=== PATIENT | male | born 1990 ===

== ENCOUNTER 2017-12-05 10:40 | Emergency (ER) | payer BC, OTHER ==
[2017-12-05 10:47] VITALS: BP 140/68
--- NOTE | 2017-12-05 11:24 | UC ---
Ear Complaint HPI - HPI Summary HPI Summary: Patient has sharp pain in both ears, congestion and headache - History of Current Complaint Chief Complaint: UCEar Stated Complaint: SINUS AND EAR COMPLAINT Time Seen by Provider: 12/05/17 11:02 Hx Obtained From: Patient Onset/Duration: Sudden Onset, Lasting Days Severity Initially: Moderate Severity Currently: Moderate Pain Intensity: 6 Associated Signs/Symptoms: Positive: Swelling @, URI Symptoms - Allergies/Home Medications Allergies/Adverse Reactions: Allergies Allergy/AdvReac Type Severity Reaction Status Date / Time No Known Allergies Allergy Verified 12/05/17 10:47 Home Medications: Home Medications Dm/PE/Acetaminophen/Doxylamine [Vicks Dayquil/Nyquil Cold] 1 mis PO 12/05/17 [ History] PMH/Surg Hx/FS Hx/Imm Hx Previously Healthy: Yes - Surgical History Surgical History: None - Family History Known Family History: Positive: Hypertension - Social History Alcohol Use: Rare Substance Use Type: None Smoking Status (MU): Never Smoked Tobacco Review of Systems Constitutional: Fatigue Skin: Negative Eyes: Negative ENT: Sore Throat, Ear Ache, Nasal Discharge, Sinus Congestion Respiratory: Cough Cardiovascular: Negative Gastrointestinal: Negative Genitourinary: Negative Motor: Negative Neurovascular: Negative Musculoskeletal: Negative Neurological: Headache Psychological: Negative Is Patient Immunocompromised?: No All Other Systems Reviewed And Are Negative: Yes Physical Exam Triage Information Reviewed: Yes Appearance: Well-Nourished, Ill-Appearing, Pain Distress Vital Signs: Initial Vital Signs Temp 98.0 F 12/05/17 10:43 Pulse 68 12/05/17 10:43 Resp 18 12/05/17 10:43 BP 140/68 12/05/17 10:43 Pulse Ox 99 12/05/17 10:43 Vital Signs Reviewed: Yes Eye Exam: Normal ENT: Positive: Pharyngeal erythema, Nasal congestion, TM bulging, TM dull - bilaterally, TM red Dental Exam: Normal Neck: Positive: Supple, Nontender, Enlarged Nodes @ - left cervical Respiratory Exam: Normal Respiratory: Positive: Chest non-tender, Normal breath sounds, Wheezing Cardiovascular Exam: Normal Cardiovascular: Positive: RRR, No Murmur, Pulses Normal Abdominal Exam: Normal Abdomen Description: Positive: Nontender, No Organomegaly, Soft Bowel Sounds: Positive: Present Musculoskeletal Exam: Normal Neurological Exam: Normal Psychological Exam: Normal Skin Exam: Normal Ear Complaint Course/Dx - Course Course Of Treatment: hx obtained, exam performed, meds reviewed, treated for bilateral ear infection - Differential Dx/Diagnosis Differential Diagnosis/HQI/PQRI: Otitis Externa, Otitis Media, Perforated TM, URI Provider Diagnoses: bilateral ear infection. wheezing Discharge - Sign-Out/Discharge Documenting (check all that apply): Patient Departure - Discharge Plan Condition: Stable Disposition: HOME Prescriptions: Albuterol HFA INHALER* [Ventolin HFA Inhaler*] 2 puff INH Q4H PRN #1 mdi PRN Reason: Sob/Wheezing Amoxicillin PO (*) [Amoxicillin 875 MG (*)] 875 mg PO BID #20 tab Patient Education Materials: Ear Infection (ED) Referrals: No Primary Care Phys,NOPCP [Primary Care Provider] - Additional Instructions: 1. take the medication as prescribed. 2. Follow up if not improving with treatment - Billing Disposition and Condition Condition: STABLE Disposition: Home
== END 2017-12-05 11:17 | disposition home or self-care (01) ==
LOC: UCEAST 10:40
DX: H66.93 Otitis media, unspecified, bilateral (principal); R06.2 Wheezing; Z82.49 Family history of ischemic heart disease and other diseases of the circulatory system
CPT/HCPCS: 99202; G0463

== ENCOUNTER 2017-12-07 12:24 | Emergency (ER) | payer OTHER ==
[2017-12-07 12:32] VITALS: BP 142/91
--- NOTE | 2017-12-07 13:01 | UC ---
Eye Complaint HPI - HPI Summary HPI Summary: 27 yo male presents with b/l eye redness, drainage, and crusting since last night. He tells me that he was seen here a few days ago and dx'd with sinusitis and placed on antibiotics. He also mentions that it seems like every time he gets sinus infections, his eyes will get "infected" - red, itchy, yellow drainage, and crusting. Denies vision changes, fever, chills, or injury. - History of Current Complaint Chief Complaint: UCEye Stated Complaint: EYE COMPLAINT Hx Obtained From: Patient Onset/Duration: Sudden Onset Severity Initially: Mild Severity Currently: Mild Pain Intensity: 4 Pain Scale Used: 0-10 Numeric - Allergies/Home Medications Allergies/Adverse Reactions: Allergies Allergy/AdvReac Type Severity Reaction Status Date / Time No Known Allergies Allergy Verified 12/07/17 12:32 PMH/Surg Hx/FS Hx/Imm Hx - Additional Past Medical History Additional PMH: None - Surgical History Surgical History: None - Family History Known Family History: Positive: Hypertension - Social History Occupation: Employed Full-time Lives: With Family Alcohol Use: Rare Substance Use Type: None Smoking Status (MU): Never Smoked Tobacco Review of Systems Constitutional: Negative Skin: Negative Eyes: Drainage, Eye Redness ENT: Sinus Congestion, Sinus Pain/Tenderness Respiratory: Negative Cardiovascular: Negative Gastrointestinal: Negative Neurovascular: Negative Neurological: Negative Psychological: Negative All Other Systems Reviewed And Are Negative: Yes Physical Exam - Summary Physical Exam Summary: GENERAL: NAD. WDWN. No pain distress. SKIN: No rashes, sores, lesions, or open wounds. HEENT: Head: AT/NC Eyes: EOM intact. PERRLA. B/L Mild Conjunctiva inflammation and scleral injection. Mild yellow purulent matter. Ears: Hearing grossly normal. TMs intact, no bulging, erythema, or edema. Nose: Nasal mucosa mildly swollen and erythematous with clear discharge. TTP maxillary and frontal sinus. Throat: Posterior oropharynx without exudates, erythema, or tonsillar enlargement. Uvula midline. NECK: Supple. Nontender. No lymphadenopathy. CHEST: CTAB. No r/r/w. No accessory muscle use. Breathing comfortably and in no distress. CV: RRR. Without m/r/g. Pulses intact. Brisk cap refill. NEURO: Alert. CN II-XII grossly intact. PSYCH: Age appropriate behavior. Triage Information Reviewed: Yes Vital Signs: Initial Vital Signs Temp 99.4 F 12/07/17 12:29 Pulse 68 12/07/17 12:29 Resp 18 12/07/17 12:29 BP 142/91 12/07/17 12:29 Pulse Ox 99 12/07/17 12:29 Vital Signs Reviewed: Yes Eye Complaint Course/Dx - Course Course Of Treatment: Suspect allergic conjunctivits, but will cover pt with polytrim for any infectious process. - Differential Dx/Diagnosis Provider Diagnoses: B/L conjunctivitis Discharge - Sign-Out/Discharge Documenting (check all that apply): Patient Departure - Discharge Plan Condition: Stable Disposition: HOME Prescriptions: Polymyx/Trimethoprim OPTH* [Polytrim OPHTH*] 1 drop BOTH EYES QID #1 btl Patient Education Materials: Allergic Rhinitis (DC), Conjunctivitis (ED) Referrals: No Primary Care Phys,NOPCP [Primary Care Provider] - Additional Instructions: If you develop a fever, shortness of breath, chest pain, new or worsening symptoms - please call your PCP or go to the ED. Your blood pressure was high at todays visit. Please see your primary provider within 4 weeks for recheck and re-evaluation. - Billing Disposition and Condition Condition: STABLE Disposition: Home
== END 2017-12-07 13:22 | disposition home or self-care (01) ==
LOC: UCEAST 12:24
DX: H10.33 Unspecified acute conjunctivitis, bilateral (principal)
CPT/HCPCS: 99212; G0463

== ENCOUNTER 2017-12-10 17:20 | Emergency (ER) | payer OTHER ==
[2017-12-10 17:30] VITALS: BP 155/96
[2017-12-10] MEDS ORDERED: Albuterol/Ipratropium NEB.SOL* Albuterol 2.5 MG/Ipratropium 0.5 MG 3 ML INH ONE (17:52)
--- NOTE | 2017-12-10 17:53 | UC ---
Respiratory Complaint HPI - HPI Summary HPI Summary: 27 yo male presents with continued sinus symptoms and now starting with respiratory symptoms. He was initially seen on 12/05 for sinus symptoms and prescribed amoxicillin, which he has been taking. He was seen again on 12/07 by me for b/l eye irritation and drainage and placed on polytrim eye drops. Today he presents for re-eval. He tells me that his sinus symptoms are not improved and that over the last 2 days has developed a cough and wheezing. He does have an albuterol inhaler for asthma, but has left this at work. He denies fever, chills, sore throat, SOB, chest pain, abdominal pain, n/v. - History of Current Complaint Chief Complaint: UCRespiratory Stated Complaint: RECHECK RESP COMPLAINT Time Seen by Provider: 12/10/17 17:44 Hx Obtained From: Patient Severity Initially: Mild Severity Currently: Mild Pain Intensity: 3 Pain Scale Used: 0-10 Numeric Character: Cough: Nonproductive - Allergies/Home Medications Allergies/Adverse Reactions: Allergies Allergy/AdvReac Type Severity Reaction Status Date / Time No Known Allergies Allergy Verified 12/10/17 17:31 PMH/Surg Hx/FS Hx/Imm Hx Respiratory History: Asthma - Surgical History Surgical History: None - Family History Known Family History: Positive: Hypertension - Social History Occupation: Employed Full-time Lives: Alone Alcohol Use: Occasionally Substance Use Type: None Smoking Status (MU): Never Smoked Tobacco Review of Systems Constitutional: Negative Skin: Negative Eyes: Negative ENT: Sinus Congestion, Sinus Pain/Tenderness Respiratory: Cough Cardiovascular: Negative Gastrointestinal: Negative Neurovascular: Negative Neurological: Negative Psychological: Negative All Other Systems Reviewed And Are Negative: Yes Physical Exam - Summary Physical Exam Summary: GENERAL: Mildly ill appearing. WDWN. SKIN: No rashes, sores, lesions, or open wounds. HEENT: Head: AT/NC Eyes: Conjunctiva clear without inflammation or discharge. Ears: Hearing grossly normal. TMs intact, no bulging, erythema, or edema. Nose: Nasal mucosa mildly swollen and erythematous with yellow/ clear discharge. TTP maxillary and frontal sinus. Throat: Posterior oropharynx without exudates, erythema, or tonsillar enlargement. Uvula midline. NECK: Supple. Nontender. No lymphadenopathy. CHEST: Moderate wheezing throughout. No r/r. No accessory muscle use. Breathing comfortably and in no distress. CV: RRR. Without m/r/g. Pulses intact. Cap refill <2seconds NEURO: Alert. CN II-XII grossly intact. PSYCH: Age appropriate behavior. Triage Information Reviewed: Yes Vital Signs: Initial Vital Signs Temp 98.1 F 12/10/17 17:24 Pulse 78 12/10/17 17:24 Resp 16 12/10/17 17:24 BP 155/96 12/10/17 17:24 Pulse Ox 97 12/10/17 17:24 Vital Signs Reviewed: Yes Diagnostic Evaluation - Laboratory O2 Sat by Pulse Oximetry: 97 Respiratory Course/Dx - Course Course Of Treatment: XR: IMPRESSION: NO ACTIVE DISEASE. Duoneb: Mild improvement s/p. Pt states less wheezing and easier to get a deep breath. Still with mild wheezing throughout. Suspect sinusitis and bronchitis vs asthma exacerbation. Will have him stop amoxicillin as he has had no improvement of sinus symptoms and start Doxycycline, prednisone, and cough syrup at bedtime. Additionally, he brings in [employer] paperwork because he missed 3 consecutive days at work. He mentions that he has family court often for his son and also misses time at work due to this, but it has never been a problem in the past. I filled out his [employer] paperwork to the best of my ability - indicating that the illness I am treating is not expected to last beyond 12/24/17 and I do not expect him to need to miss work due to this. - Differential Dx/Diagnosis Provider Diagnoses: Sinusitis. Asthma exacerbation Discharge - Sign-Out/Discharge Documenting (check all that apply): Patient Departure - Discharge Plan Condition: Stable Disposition: HOME Prescriptions: Codeine Phosphate/Guaifenesin [Guaifen-Codeine 100-10 mg/5 ml] 5 ml PO BEDTIME PRN #40 ml MDD 5mL PRN Reason: Cough DOXYcycline CAP(*) [DOXYcycline 100MG CAP(*)] 100 mg PO BID #14 cap predniSONE TAB* [Deltasone 20 MG TAB*] 60 mg PO DAILY #18 tab Patient Education Materials: Sinusitis (ED), Acute Bronchitis (ED) Referrals: No Primary Care Phys,NOPCP [Primary Care Provider] - Additional Instructions: If you develop a fever, shortness of breath, chest pain, new or worsening symptoms - please call your PCP or go to the ED. Your blood pressure was high at todays visit. Please see your primary provider within 4 weeks for recheck and re-evaluation. 1) Stop the Amoxicillin and start the Doxycycline - Billing Disposition and Condition Condition: STABLE Disposition: Home
--- NOTE | 2017-12-10 18:33 | RAD ---
INDICATION: Cough COMPARISON: October 12, 2012 TECHNIQUE: PA and lateral dual-energy views were obtained. FINDINGS: Bones/Soft Tissues: There are no acute bony findings. Cardiomediastinal: The cardiomediastinal silhouette is normal. Lungs: There are no infiltrates. Pleura: There are no pleural effusions. Other: None IMPRESSION: NO ACTIVE DISEASE.
== END 2017-12-10 19:15 | disposition home or self-care (01) ==
LOC: UCEAST 17:20
DX: J32.9 Chronic sinusitis, unspecified (principal); J45.901 Unspecified asthma with (acute) exacerbation
CPT/HCPCS: 71046; 99212; A9270-GY; G0463